=== PATIENT | male | born 1970 | race Caucasian/White ===

== ENCOUNTER 2018-02-02 01:49 | Emergency (ER) | payer OTHER ==
[2018-02-02 02:16] VITALS: TEMP 97.9; BMI 35.2
--- NOTE | 2018-02-02 02:27 | PDOC ---
History of Present Illness - General History Source: Patient Exam Limitations: No Limitations - History of Present Illness Initial Comments: 02/02/18 02:22 Patient is a 47 year old with no pmhx c/o RUQ abd pain that radiates to the back. He has been having this pain for many years but over the past few weeks the pain has been getting more frequent. The pain usually last for 15 mins interval. Tonight the pain was 10/10 sharp, stabbing and woke him up from sleep , no aggravating or alleviating factors. States sometimes when he get the pain has cold sweats, and nausea, no vomiting, no fever, no left sided chest pain. Denies any food contact for the pain. No recent travel. Fam HX neg for CVA/UT/ PE/DVT. PMD: Dr. Yusuf PMHX: neg PSOCHX: neg drug, occ etoh, neg cig ALL: NKDA GENERAL/CONSTITUTIONAL: [No fever or chills. No weakness. No weight change.] HEAD, EYES, EARS, NOSE AND THROAT: [No change in vision. No ear pain or discharge. No sore throat.] CARDIOVASCULAR: [No chest pain or shortness of breath.] RESPIRATORY: [No cough, wheezing, or hemoptysis.] GASTROINTESTINAL: (+) nausea, (-) vomiting, diarrhea or constipation. No rectal bleeding.] GENITOURINARY: [No dysuria, frequency, or change in urination.] MUSCULOSKELETAL: [No joint or muscle swelling or pain. No neck or back pain.] SKIN AND BREASTS: [No rash or easy bruising.] NEUROLOGIC: [No headache, vertigo, loss of consciousness, or loss of sensation.] PSYCHIATRIC: [No depression or anxiety.] ENDOCRINE: [No increased thirst. No abnormal weight change.] HEMATOLOGIC/LYMPHATIC: [No anemia, easy bleeding, or history of blood clots.] ALLERGIC/IMMUNOLOGIC: [No hives or skin allergy. No latex allergy.] GENERAL: [The patient is awake, alert, and fully oriented, in no acute distress. ] HEAD: [Normal with no signs of trauma.] EYES: [Pupils equal, round and reactive to light, extraocular movements intact, sclera anicteric, conjunctiva clear.] ENT: [Ears normal, nares patent, oropharynx clear without exudates. Moist mucous membranes.] NECK: [Normal range of motion, supple without lymphadenopathy, JVD, or masses.] LUNGS: [Breath sounds equal, clear to auscultation bilaterally. No wheezes, and no crackles.] HEART: [Regular rate and rhythm, normal S1 and S2 without murmur, rub.] ABDOMEN: [Soft, (+) tenderness RUQ, normoactive bowel sounds. No guarding, no rebound. No masses.] EXTREMITIES: [Normal range of motion, no edema. No clubbing or cyanosis. No cords, erythema, or tenderness.] NEUROLOGICAL: [Cranial nerves II through XII grossly intact. Normal speech, normal gait.] PSYCH: [Normal mood, normal affect.] SKIN: [Warm, Dry, normal turgor, no rashes or lesions noted.] <Rasheed Liriano - Last Filed: 02/02/18 04:51> <Laura Fair - Last Filed: 02/02/18 05:29> - General Chief Complaint: Pain Stated Complaint: SHARP ABDOMINAL PAIN Past History - Past Medical History COPD: No - Suicide/Smoking/Psychosocial Hx Smoking History: Never smoked Have you smoked in the past 12 months: No Information on smoking cessation initiated: No Hx Alcohol Use: Yes (social) Drug/Substance Use Hx: No Substance Use Type: None <Rasheed Liriano - Last Filed: 02/02/18 04:51> <Laura Fair - Last Filed: 02/02/18 05:29> - Past Medical History Allergies/Adverse Reactions: Allergies Allergy/AdvReac Type Severity Reaction Status Date / Time No Known Allergies Allergy Verified 02/02/18 02:30 Home Medications: Ambulatory Orders NK [No Known Home Medication] 02/02/18 *Physical Exam - Vital Signs Last Vital Signs Temp Pulse Resp BP Pulse Ox 97.9 F 68 18 128/68 100 02/02/18 02:00 02/02/18 02:00 02/02/18 02:00 02/02/18 02:00 02/02/18 02:00 <Rasheed Liriano - Last Filed: 02/02/18 04:51> - Vital Signs Last Vital Signs Temp Pulse Resp BP Pulse Ox 97.9 F 70 18 132/64 99 02/02/18 02:00 02/02/18 04:26 02/02/18 04:26 02/02/18 04:26 02/02/18 04:26 <Laura Fair - Last Filed: 02/02/18 05:29> ED Treatment Course - LABORATORY CBC & Chemistry Diagram: 02/02/18 03:35 02/02/18 02:40 <Rasheed Liriano - Last Filed: 02/02/18 04:51> - LABORATORY CBC & Chemistry Diagram: 02/02/18 03:35 02/02/18 02:40 - ADDITIONAL ORDERS Additional order review: Laboratory Results 02/02/18 02:40 Sodium 142 Potassium 4.1 Chloride 105 Carbon Dioxide 28 Anion Gap 9 BUN 22 H Creatinine 0.9 Creat Clearance w eGFR > 60 Random Glucose 94 Calcium 8.7 Total Bilirubin 0.3 AST 30 ALT 42 Alkaline Phosphatase 99 Total Protein 7.4 Albumin 3.7 Lipase 143 02/02/18 02/02/18 03:35 02:40 RBC 5.15 Cancelled MCV 78.3 L Cancelled MCHC 33.4 Cancelled RDW 14.8 Cancelled MPV 7.3 L Cancelled Neutrophils % 51.2 Cancelled Lymphocytes % 34.5 Cancelled Monocytes % 8.9 Cancelled Eosinophils % 4.8 H Cancelled Basophils % 0.6 Cancelled - Medications Given in the ED: ED Medications Discontinued Medications Generic Name Dose Route Start Last Admin Trade Name Freq PRN Reason Stop Dose Admin Acetaminophen 650 mg 02/02/18 02:45 02/02/18 02:56 Tylenol - PO 02/02/18 02:46 650 mg ONCE ONE Administration <Laura Fair - Last Filed: 02/02/18 05:29> Medical Decision Making - Medical Decision Making 02/02/18 02:22 Patient is a 47 year old with no pmhx c/o RUQ abd pain that radiates to the back. He has been having this pain for many years but over the past few weeks the pain has been getting more frequent. DDx billary colic, esophageal spam, gastritis, bedside US pain meds offed but refused EKG SR rate 72, NAD, (-) ST-T wave changes labs reviewed no acute finding will discharge with inst to follow up with GI I discussed the physical exam findings, ancillary test results and final diagnoses with the patient. I answered all of the patient's questions. The patient was satisfied with the care received and felt comfortable with the discharge plan and treatment plan. The Patient agrees to follow up with the primary care physician within 24-72 hours. <Alex Liriano - Last Filed: 02/02/18 04:51> - Medical Decision Making The patient was seen and evaluated in conjunction with midlevel provider under my direct supervision, ancillary studies were reviewed. I agree with the plan as outlined by JAKE Paula. 02/02/18 05:28 <Laura Fair - Last Filed: 02/02/18 05:29> *DC/Admit/Observation/Transfer <Rasheed Liriano - Last Filed: 02/02/18 04:51> <Laura Fair - Last Filed: 02/02/18 05:29> Diagnosis at time of Disposition: RUQ abdominal pain - Discharge Dispostion Disposition: HOME Condition at time of disposition: Stable - Referrals Referrals: Edwardo Toussaint MD [Staff Physician] - - Patient Instructions Printed Discharge Instructions: DI for Abdominal Pain-Adult Additional Instructions: Your Discharge Instructions: You must call primary care physician within 24 hours to arrange follow-up. Return to the Emergency Department with any new, persistent or worsening symptoms, for fever, chills, SOB, dizziness or any other concerning changes that may occur. follow-up with , call to make .
[2018-02-02] MEDS ORDERED: ACETAMINOPHEN 325 MG TABLET (FP) ONE (02:33)
[2018-02-02] MEDS ORDERED: ACETAMINOPHEN 325 MG TABLET (FP) PO ONE (02:45)
[2018-02-02 03:27] LABS: ALBUMIN 3.7 g/dl (3.4-5.0); ALK PHOS 99 U/L (45-117); ANION GAP 9 MMOL/L (8-16); BILIRUBIN,TOTAL 0.3 mg/dL (0.2-1.0); BLOOD UREA NITROGEN 22 mg/dL (7-18); CALCIUM 8.7 mg/dL (8.5-10.1); CHLORIDE 105 mmol/L (98-107); CO2 28 mmol/L (21-32); CREATININE 0.9 mg/dL (0.7-1.3); GLUCOSE,RANDOM 94 mg/dL (74-106); LIPASE 143 U/L (73-393); POTASSIUM 4.1 mmol/L (3.5-5.1); SGPT/ALT 42 U/L (12-78); SODIUM 142 mmol/L (136-145); TOT PROT 7.4 g/dl (6.4-8.2)
[2018-02-02 03:28] LABS: SGOT/AST 30 U/L (15-37)
[2018-02-02 03:48] LABS: BASO % 0.6 % (0-2.0); EOS % 4.8 % (0-4.5); HEMATOCRIT 40.3 % (35.4-49); HEMOGLOBIN 13.5 GM/dL (11.7-16.9); LYMPH % 34.5 % (8-40); MCH 26.1 pg (25.7-33.7); MCHC 33.4 g/dl (32.0-35.9); MEAN CELL VOLUME 78.3 fl (80-96); MEAN PLT VOLUME 7.3 fl (7.5-11.1); MONO % 8.9 % (3.8-10.2); NEUT % 51.2 % (42.8-82.8); PLATELET COUNT 251 K/MM3 (134-434); RBC 5.15 M/mm3 (4.00-5.60); RDW 14.8 % (11.9-15.9)
[2018-02-02 04:27] VITALS: BP 132/64; PULSE 70
--- NOTE | 2018-02-02 14:33 | EKG ---
Test Reason : Blood Pressure : / mmHG Vent. Rate : 072 BPM Atrial Rate : 072 BPM P-R Int : 202 ms QRS Dur : 098 ms QT Int : 380 ms P-R-T Axes : 029 030 018 degrees QTc Int : 416 ms NORMAL SINUS RHYTHM NORMAL ECG NO PREVIOUS ECGS AVAILABLE Confirmed by Bienvenido Dickerson ([id number]) on 02/02/2018 2:33:35 PM Referred By: Confirmed By:Bienvenido Dickerson
== END 2018-02-02 04:27 | disposition home or self-care (01) ==
LOC: JER 01:49
DX: R10.11 Right upper quadrant pain (principal)
CPT/HCPCS: 36415; 80053; 83690; 85025; 93005; 93010; 99283-25

== ENCOUNTER 2018-12-22 03:26 | Emergency (ER) | payer OTHER ==
[2018-12-22 05:01] VITALS: TEMP 97.7; BMI 37.0
--- NOTE | 2018-12-22 05:11 | PDOC ---
History of Present Illness - General Chief Complaint: Psychiatric Stated Complaint: UNABLE TO SLEEP Time Seen by Provider: 12/22/18 05:11 History Source: Patient - History of Present Illness Initial Comments: 48-year-old male complaining of feeling anxious and unable to sleep since 1 AM. Patient reports that he is having anxiety about financial situations and health related concerns for . As per patient for the last several years has been taking NyQuil before bedtime to optimize sleep. Patient denies taking NyQuil last night and woke up at 1 AM with severe anxiety. Patient at this time alert awake oriented 3 Denies suicidal r homicidal ideation. Past History - Past Medical History Allergies/Adverse Reactions: Allergies No Known Allergies Allergy (Verified 02/02/18 02:30) Home Medications: Ambulatory Orders Alprazolam [Xanax] 0.25 mg PO HS #7 tablet MDD 1 12/22/18 - Social History Smoking Status: Never smoked *Review of Systems - Review of Systems Able to Perform ROS?: Yes Constitutional: No: Symptoms Reported, See HPI, Chills, Diaphoresis, Fever, Loss of Appetite, Malaise, Night Sweats, Weakness, Weight Stable, Unintentional Wgt. Loss, Unexplained wgt Loss, Other Neurological: No: Symptoms reported, See HPI, Headache, Numbness, Paresthesia, Pre-Existing Deficit, Seizure, Tingling, Tremors, Weakness, Unsteady Gait, Ataxia, Dizziness, Other Psychiatric: Yes: Anxiety, Stressors, Sleep Pattern Change *Physical Exam - Vital Signs Last Vital Signs Temp Pulse Resp BP Pulse Ox 97.7 F 72 17 129/81 98 12/22/18 03:26 12/22/18 03:26 12/22/18 03:26 12/22/18 03:26 12/22/18 03:26 - Physical Exam General Appearance: Yes: Appropriately Dressed Respiratory/Chest: positive: Lungs Clear Cardiovascular: positive: Regular Rhythm, Regular Rate Neurologic: positive: Fully Oriented, Alert, Other (no eye contact. appears to be anxious) Plan - Progress Note Progress Note: 12/22/18 07:01 A: anxiety; insomnia P; patient to follow up with PCP and a referral to psychiatry was given today 12/22/18 07:02 *DC/Admit/Observation/Transfer Diagnosis at time of Disposition: Anxiety Insomnia Qualifiers: Insomnia type: unspecified Qualified Code(s): G47.00 - Insomnia, unspecified - Discharge Dispostion Disposition: HOME Condition at time of disposition: Fair - Prescriptions Prescriptions: Alprazolam [Xanax] 0.25 mg PO HS #7 tablet MDD 1 - Referrals Referrals: Elsie Alejandra MD [Primary Care Provider] - Call tomorrow Kathie Pollock MD [Staff Physician] - - Patient Instructions Printed Discharge Instructions: Anxiety and Panic Attacks (Alternative Therapy) Additional Instructions: please follwo up with your doctor as possible you were given a few doses of Xanax for anxiety Additional Instructions: * Please call your personal physician to report your Emergency Department visit and to report your progress, if any. * If there is no improvement in symptoms in 2 days call your physician. * Return to the Emergency Department for any worsening symptoms. - Post Discharge Activity Forms/Work/School Notes: Back to Work
[2018-12-22] MEDS ORDERED: ALPRAZolam 0.25 MG TABLET PO ONE (05:25)
[2018-12-22] MEDS ORDERED: ALPRAZolam 0.25 MG TABLET ONE (05:33)
--- NOTE | 2018-12-22 05:39 | PDOC ---
*Physical Exam - Vital Signs Last Vital Signs Temp Pulse Resp BP Pulse Ox 97.7 F 72 17 129/81 98 12/22/18 03:26 12/22/18 03:26 12/22/18 03:26 12/22/18 03:26 12/22/18 03:26 Medical Decision Making - Medical Decision Making 12/22/18 05:38 Patient seen by the advanced practice provider under my direct supervision. Ancillary testing reviewed as necessary. I agree with plan as outlined by the advanced practice provider. *DC/Admit/Observation/Transfer Diagnosis at time of Disposition: Insomnia - Discharge Dispostion Condition at time of disposition: Fair - Referrals Referrals: Elsie Alejandra MD [Primary Care Provider] - - Patient Instructions - Post Discharge Activity
[2018-12-22 06:10] VITALS: BP 125/83; PULSE 75
== END 2018-12-22 06:00 | disposition home or self-care (01) ==
LOC: JER 03:26
DX: F41.9 Anxiety disorder, unspecified (principal); G47.00 Insomnia, unspecified
CPT/HCPCS: 99282-25

== ENCOUNTER 2019-02-28 13:50 | Emergency (ER) | payer OTHER ==
[2019-02-28] MEDS ORDERED: KETOROLAC TROMETHAMINE 30 MG/1 ML VIAL IM ONE (13:58)
--- NOTE | 2019-02-28 13:58 | PDOC ---
Rapid Medical Evaluation Time Seen by Provider: 02/28/19 13:55 Medical Evaluation: Allergies Allergy/AdvReac Type Severity Reaction Status Date / Time No Known Allergies Allergy Verified 02/28/19 13:55 02/28/19 13:56 CC: left shoulder pain s/p fall while playing cricket PE: TTP over left AC joint Orders: xray, toradol Pt will proceed to ER for further evaluation. Discharge Disposition - Diagnosis Left shoulder pain - Referrals - Patient Instructions - Post Discharge Activity
[2019-02-28 14:02] VITALS: BP 126/79; PULSE 67; TEMP 98.3; BMI 35.9
--- NOTE | 2019-02-28 14:26 | PDOC ---
History of Present Illness - General Chief Complaint: Injury Stated Complaint: fell on left shoulder Time Seen by Provider: 02/28/19 13:55 - History of Present Illness Initial Comments: 02/28/19 14:22 48 y/o M w/PMH of anxiety presents for evaluation of L shoulder pain after a fall and roll which occurred while playing cricket yesterday Past History - Past Medical History Allergies/Adverse Reactions: Allergies Allergy/AdvReac Type Severity Reaction Status Date / Time No Known Allergies Allergy Verified 02/28/19 13:55 Home Medications: Ambulatory Orders Alprazolam [Xanax] 0.25 mg PO HS #7 tablet MDD 1 12/22/18 Paroxetine HCl [Paxil Cr] 25 mg PO DAILY 02/28/19 COPD: No Psychiatric Problems: Yes (anxiety) - Immunization History Immunization Up to Date: Yes - Psycho Social/Smoking Cessation Hx Smoking History: Current some day smoker Have you smoked in the past 12 months: Yes Information on smoking cessation initiated: Yes Hx Alcohol Use: No Drug/Substance Use Hx: No Substance Use Type: None Review of Systems - Review of Systems Musculoskeletal: Yes: Joint Pain *Physical Exam - Vital Signs Last Vital Signs Temp Pulse Resp BP Pulse Ox 98.3 F 67 16 126/79 100 02/28/19 13:57 02/28/19 13:57 02/28/19 13:57 02/28/19 13:57 02/28/19 13:57 - Physical Exam Comments: 02/28/19 14:23 L shoulder full ROM with pain at terminal ranges. 3/5 SSI and ER + impingment maneuvers. No gross sensory or motor deficits NVID. Discharge - Discharge Information Problems reviewed: Yes Clinical Impression/Diagnosis: Left shoulder pain Condition: Stable Disposition: HOME - Admission No - Follow up/Referral Referrals: Mark Chacon MD [Primary Care Provider] - Tommie Mcclain DO [Staff Physician] - - Patient Discharge Instructions Additional Instructions: Return to the emergency room for worsening symptoms. Without fail, please follow up with orthopedic surgery in 1-2 days for further evaluation and treatment options. Continue with Motrin as directed for pain. - Post Discharge Activity
== END 2019-02-28 14:31 | disposition home or self-care (01) ==
LOC: JERFT 13:50
PROC: 3E0233Z Introduction of Anti-inflammatory into Muscle, Percutaneous Approach (ICD-10-PCS; principal; 2019-02-28)
DX: M25.512 Pain in left shoulder (principal); W18.39XA Other fall on same level, initial encounter; Y93.69 Activity, other involving other sports and athletics played as a team or group; Y92.328 Other athletic field as the place of occurrence of the external cause; Y99.8 Other external cause status
CPT/HCPCS: 73030-TC-LT-FY; 99281-25

== ENCOUNTER 2019-06-10 08:36 | Day surgery (SDC) | payer OTHER ==
[2019-06-06 11:27] VITALS: BMI 35.9
--- NOTE | 2019-06-10 10:07 | HP ---
History & Physical Update - Physical Physical: No Change - Assessment Assessment: No Change - Plan Plan: No Change
[2019-06-10] MEDS ORDERED: MIDAZOLAM HCL 2 MG/2 ML SINGLE DOSE VIAL ONE ×2 (10:12→10:13)
[2019-06-10] MEDS ORDERED: ROPIVACAINE HCL 0.5% 30ML VIAL ONE (10:13)
[2019-06-10] MEDS ORDERED: PROPOFOL 20 ML ONE ×3 (10:38)
[2019-06-10] MEDS ORDERED: oxyCODONE HCL 5 MG TABLET PO PRN ×2 (10:43)
[2019-06-10] MEDS ORDERED: ONDANSETRON 4 MG/2 ML VIAL IVPUSH PRN (10:43)
[2019-06-10] MEDS ORDERED: PROMETHAZINE HCL 25 MG/1 ML VIAL IVPUSH PRN (10:43)
[2019-06-10] MEDS ORDERED: ceFAZolin SODIUM 1 GM VIAL ONE (11:02)
[2019-06-10] MEDS ORDERED: BUPIVACAINE HCL/PF 2.5 MG/ML - 30 ML VIAL IJ ONE (11:04)
[2019-06-10] MEDS ORDERED: BUPIVACAINE HCL/PF 0.25% (2.5MG/ML) 10 ML VIAL IJ ONE ×2 (11:37)
[2019-06-10] MEDS ORDERED: ACETAMINOPHEN 325 MG TABLET (FP) PO PRN (12:59)
--- NOTE | 2019-06-10 14:02 | OPR ---
Date of Procedure: 06/10/2019 Procedure: Left Shoulder- 1. Diagnostic arthroscopy. 2. Arthroscopic limited debridement of glenohumeral joint (65231). 3. Arthroscopic subacromial decompression (35359). 4. Arthroscopic rotator cuff repair: Supraspinatus (39300). 5. Arthroscopic-assisted biceps tenodesis-subpectoral (13122). Preoperative Diagnoses: 1. Rotator cuff tear- Supraspinatus. 2. Biceps tendon degeneration. 3. Glenohumeral synovitis. Postoperative Diagnoses: 1. Rotator cuff tear- Supraspinatus, 1 x 1.5cm. 2. Biceps tendon degeneration and tenosynovitis. 3. Labral degeneration and fraying; type II SLAP tear. 4. Glenohumeral synovitis. 5. Subacromial bursitis and adhesions. Surgeon: Santana Villatoro DO Assistants: Tommie Mcclain DO Anesthesia: IV regional with interscalene nerve block Estimated Blood Loss: Minimal Drains: None Total IV Fluids: Per anesthesia record Specimens: Shavings Implants: [employer] 4.5mm FootPrint PEEK [place] with (2) UltraTape Sutures; 1.9mm SutureFix, Double loaded with suture Complications: None Disposition: PACU Condition: Hemodynamically stable Indications: Srinivas Taylor presented to us with chronic right shoulder pain that failed conservative measures. His symptoms, signs, and imaging were consistent with the above noted diagnoses. He ultimately elected to proceed with surgical intervention after discussion of the risks, benefits, alternatives. We discussed risks including but not limited to, bleeding, pain, infection, scarring, damage to neurovascular structures, blood clots, pulmonary embolus, need for additional surgery, incomplete relief of pain, and incomplete return of function. He expressed understanding and wished to proceed. He underwent preoperative medical evaluation clearance and optimization prior to surgery. Procedure Details: He was identified in the preoperative area. The left shoulder was marked as the operative site and consent was completed and confirmed. An interscalene block was performed in the holding area by a member of the anesthesia team. He was later transferred to the operating room and placed in supine position the operating room. General anesthesia was induced without difficulty. He was repositioned into beach chair with all bony prominences appropriately padded. The neck was in neutral alignment. A surgical time-out was performed identifying the correct patient, procedure, and site. Antibiotics were given within 1 hour prior to surgical incision. The upper extremity was prepped and draped in standard sterile fashion. Examination under anesthesia: Passive range of motion of the left shoulder showed forward elevation of 170, abduction 100, external rotation at side 40 , SABER 80, SABIR 420. This was compared to her contralateral shoulder which shows forward elevation of 170, abduction 100 external rotation at side 60, SABER 90, SABIR 40. Diagnostic arthroscopy: We began the procedure with the standard posterolateral portal, entered the glenohumeral joint, and an anterior portal was made within the rotator cuff interval under direct visualization with the assistance of a spinal needle. A probe was used to assist with diagnostic arthroscopy and we visualized from both posteriorly and anteriorly. Evaluation of the glenohumeral joint showed mild to moderate synovitis anteriorly and superiorly. The superior labrum had a type II tear that was debrided back to a stable base. The anterior labrum was probed and found to be intact. The posterior labrum was probed and found to be intact. There were no loose bodies in the inferior pouch. There was no HAGL lesion. The biceps tendon showed hyperemia. The rotator cuff interval was normal. The axillary recess was empty. The subscapularis was probed and found to be intact. The supraspinatus tendon was found to be torn from the greater tuberosity. The articular surface of the infraspinatus and teres minor tendons were intact. The glenoid and humeral head showed no significant chondral defects. Evaluation of the subacromial space showed moderate bursitis and adhesions. There was a small acromial spur anteriorly. There was fraying of the CA ligament. The AC joint was intact. Ther rotator cuff was found to be torn from the tuberosity. This tear was measured to be 1 x 1.5cm. Arthroscopic limited debridement of the glenohumeral joint: We used a combination of the arthroscopic motorized shaver and radiofrequency device to perform a limited debridement inside the glenohumeral joint. The hyperemia, erythema, and synovitis of the joint and joint capsule was focally debrided. Synovitic fronds were thermally ablated. Labral fraying and degeneration was also resected and debrided to a stable edge. We used the radiofrequency device to ablate and remove synovitis and scar tissue starting with the rotator cuff interval. We stayed lateral to the labrum, released the scar to the lateral surface of the coracoid, and then proceeded more laterally across the rotator interval, ablating the scar tissue all the way to the biceps sagrario region. The subscapularis tendon was identified and carefully protected. The scar above it including the ligaments and capsular tissue was ablated just lateral to the labral margin and the scar tissue was resected.The biceps tendon was tenotomized as it inserted into the superior labral complex and the remaining portion of the biceps tendon was allowed to retract into the bicipital groove for later tenodesis. Arthroscopic-assisted biceps tenodesis: We made a 2 cm incision along Dee's lines in the axillary fold. Sharp dissection was carried out down to the level of the pectoralis major. The plane between the pectoralis major and the short head of biceps tendon was developed bluntly down to the level of the humeral bone, where we identified the long head of biceps tendon and delivered it retrograde out of the wound. The underlying soft tissue was resected and the bone was frayed with a 1/4-inch osteotome. We then selected a 1.9 SutureFix anchor and placed the anchor high within the bicipital groove underneath the pectoralis major tendon. The sutures were then passed just proximal to the musculotendinous junction of the long head of biceps in an alternating simple versus lasso loop configuration. Tying these sutures down tenodesed the tendon onto the underlying frayed humeral bone. We used an arthroscopic knot pusher to get excellent knot fixation, and then arthroscopic cover cutter to cut the remaining length of the suture. The remaining length of the biceps tendon was resected. We confirmed our arthroscopic knots and position of the biceps tendon underneath the pectoralis major with the arthroscope. We thoroughly irrigated the wound. Arthroscopic subacromial decompression:The subacromial space was entered from posteriorly. A separate anterior-lateral portal was made for additional instrumentation and visualization. We then visualized the rotator cuff pattern as noted above, and performed our subacromial decompression in a systematic fashion from anterior to posterior and from lateral to medial, removing the bursal tissue carefully. This was done with a radiofrequency device and motorized shaver. The undersurface of the acromion was skeletonized and gently debrided to a flat smooth undersurface. There was a small anterior-inferior spur that was resected with a motorized bur. Arthroscopic rotator cuff repair: We turned our attention to rotator cuff repair of the supraspinatus. We debrided the remnant tissue over the greater tuberosity and debrided frayed tissue from the rotator cuff tendon edge. We debrided the greater tuberosity with a motorized bur to slightly decorticate it , preparing a bony bed to receive the rotator cuff tendon. Two ultratape sutures were passed through the supraspinatus with the tissue-piercing Firstpass , approximately 1.5 cm from its torn edge. The first was passed in a horizontal mattress suture and the second was passed in a simple pattern creating a rip stop configuration. The ultratape sutures were passed through a 4.5mm Footprint PEEK anchor and this was impacted into the greater tuberosity footprint. It had excellent fixation within the bone. We promoted some localized bone bleeding and marrow elements with an awl in the lateral aspect of the greater tuberosity. We thoroughly irrigated the subacromial space and we removed the arthroscopic equipment. Wound closure: We thoroughly irrigated the axillary wound. The arthroscopic portal incisions were closed with 3-0 Monocryl subcuticular stitch with Steri strips. The axillary incision was closed with 2-0 Vicryl, 3-0 Monocryl subcuticular stitch, and Dermabond skin glue. The shoulder was sterilely dressed and placed in a shoulder immobilizer. Post-operative Details: I spoke with the regarding the operation after surgery. Postoperative rehabilitation: Arthroscopic rotator cuff repair protocol. The patient will remain in a shoulder immobilizer for 4-5 weeks. Early passive range of motion okay with no limits and advance as tolerated; no pendulums. No strengthening for at least 5 months. Attestation for business assistant: Dr. Tommie Mcclain acted as the business assistant. There was no qualified resident or physician business services assistant available to do so.
[2019-06-10 15:48] VITALS: TEMP 97.8
[2019-06-10 15:50] VITALS: BP 132/76; PULSE 78
--- NOTE | 2019-06-14 15:03 | PATH ---
Surgical Pathology Report Patient Name: YANETH STANTON Med. Rec. #: [id number] /Age/Gender: 1970 (Age: 48) / M Account: [id number] Location: [facility] Taken: 06/10/2019 Received: 06/10/2019 Reported: 06/14/2019 Physicians: Santana Villatoro DO Specimen(s) Received A: SHAVINGS LEFT SHOULDER B: LEFT BICEP TENDON Clinical History Rotator cuff tear left shoulder, bursitis, biceps tendinitis Final Diagnosis A. LEFT SHOULDER, ARTHROSCOPIC SHAVING: PORTIONS OF SYNOVIUM, CARTILAGE, SKELETAL MUSCLE AND BONE CONSISTENT WITH ARTHROSCOPIC SHAVINGS. B. SOFT TISSUE, LEFT BICEPS TENDON, EXCISION: DENSE ORGANIZED FIBROUS CONNECTIVE TISSUE CONSISTENT WITH TENDON, WITH ATTACHED PORTIONS OF SYNOVIUM. Electronically Signed Winston Calderon M.D. Gross Description A. Received in formalin labeled "left shoulder shavings," is a 3.5 x 2.8 x 0.3 cm aggregate of pyaan-yellow soft tissue fragments. The specimen is entirely submitted in one cassette. B. Received in formalin labeled "left biceps tendon," is a 5.2 x 1.0 x 0.3 cm payan portion of fibrous tissue, consistent with a portion of tendon. Anesthesiology Fellow sections are submitted in one cassette. 06/13/2019 saudi06/13/2019
== END 2019-06-10 15:40 | disposition home or self-care (01) ==
LOC: FASU 08:36
PROVIDERS: ATTEND Orthopaedic Surgery
PROC: 0RNK4ZZ Release Left Shoulder Joint, Percutaneous Endoscopic Approach (ICD-10-PCS; 2019-06-10)
PROC: 0RBK4ZZ Excision of Left Shoulder Joint, Percutaneous Endoscopic Approach (ICD-10-PCS; 2019-06-10)
PROC: 0LQ24ZZ Repair Left Shoulder Tendon, Percutaneous Endoscopic Approach (ICD-10-PCS; principal; 2019-06-10 11:00)
PROC: 0LS24ZZ Reposition Left Shoulder Tendon, Percutaneous Endoscopic Approach (ICD-10-PCS; 2019-06-10 11:00)
DX: M75.112 Incomplete rotator cuff tear or rupture of left shoulder, not specified as traumatic (principal); M67.813 Other specified disorders of tendon, right shoulder; M65.812 Other synovitis and tenosynovitis, left shoulder; S43.432A Superior glenoid labrum lesion of left shoulder, initial encounter; X58.XXXA Exposure to other specified factors, initial encounter; Y93.9 Activity, unspecified; Y92.9 Unspecified place or not applicable; M75.52 Bursitis of left shoulder; M75.02 Adhesive capsulitis of left shoulder
CPT/HCPCS: 88304-TC; 94760

== ENCOUNTER 2020-10-01 17:35 | Emergency (ER) | payer OTHER ==
[2020-10-01 17:54] VITALS: BP 151/87; PULSE 99; TEMP 98.2; BMI 35.9
[2020-10-01] MEDS ORDERED: DIPHTH,PERTUSS(ACELL),TET 0.5 ML DISP.SYRIN IM ONE (18:49)
[2020-10-01] MEDS ORDERED: BACITRACIN 15 GM TUBE TOPICAL OINTMENT TP ONE (19:01)
== END 2020-10-01 20:26 | disposition home or self-care (01) ==
LOC: JERFT 17:35
PROC: 3E0234Z Introduction of Serum, Toxoid and Vaccine into Muscle, Percutaneous Approach (ICD-10-PCS; principal; 2020-10-01)
DX: S90.819A Abrasion, unspecified foot, initial encounter (principal); S63.295A Dislocation of distal interphalangeal joint of left ring finger, initial encounter
CPT/HCPCS: 73130-TC-RT-FY; 73140-TC-RT-FY; 90715; 99284-25